=== PATIENT | female | born 1985 | race Caucasian/White ===

== ENCOUNTER 2022-07-22 01:22 | Inpatient (IN) | payer OTHER, SELFPAY ==
--- NOTE | 2022-07-22 03:05 | PC.ADMIT ---
PT is a 36 year old female who was transferred to [facility] from [facility] where she was seen for increased anxiety depression and SI without a plan . She arrived at 1:40am on 07/22/22 She is pleasant denies active SI thoughts at time of admission . She has been noncompliant with her medications due to running out of them a few weeks ago and dose not have a provider to write prescriptions. Has a history of alcohol use but did not meet ciwa score she is not showing s/s of withdrawal.
[2022-07-22 08:04] VITALS: BP 94/51; PULSE 59; RESP 16; TEMP 36.6; O2SAT 94
[2022-07-22 09:20] VITALS: BP 101/60; PULSE 60; RESP 18; O2SAT 97
[2022-07-22] MEDS: cloNIDine HCL 0.1 MG TABLET PO ×2 (09:24→20:54)
--- NOTE | 2022-07-22 11:39 | P.CONHOSP_ITS ---
History of Present Illness Data of Consult Service Date: 07/22/22 Requesting physician: Lele Hart Primary Care Provider: Unknown Physician HPI Reason for consult: medical H&P 36 year old female with history opiate dependence now on suboxone, depression, anxiety, alcohol abuse, 1/2 ppd cigarette smoker, and ADHD admitted to psychiatry from [facility] for increased depression, anxiety, si without a plan with consult placed for medical H&P. She reports some constipation. Denies any hx IVDU, states was started on suboxone while in the ED and denies any withdrawal or cravings however has not gotten her dose today and is requesting this. Reports binge drinking for days at a time consuming 10+ alcoholic beverages in a day. No etoh use in several weeks. Has experienced withdrawal but no hx withdrawal seizure. No other medical complaints. Review of Systems Review of Systems: General: No fevers, malaise, unintentional weight loss HEENT: no blurred vision, diplopia Cardiovascular: No chest pain, palpitations, or leg edema Respiratory: No shortness of breath, wheezing, cough GI: +constipation. No abdominal pain, nausea, vomiting, diarrhea, melena, hematochezia Gu: No dysuria, hematuria, increased frequency MSK: No pain Neuro: No headaches, weakness, paresthesias Psych: +depression, +SI Skin: No rashes or lesions PMFSH Medical History ADHD Depression Opiate dependence Family History Mother No significant family history Father No significant family history Social History Household Members: None Housing: Homeless Do you presently have visiting nurse or other home services: No Patient Tobacco Use Status: Current everyday Tobacco user Tobacco use type: Cigarette Cigarette Packs Per Day: 0.5 Cigarettes Per Day: 10.0 Smoked in Last 30 Days: Yes e-Cigarette/Vaping Use: Never Used Patient Interested in Nicotine Replacement: Yes Patient Given Instructions on How to Stop Smoking: Yes Date Education Initiated: 07/22/22 Second Hand Smoke Exposure: Yes Use of substances other than those prescribed or required for medical reasons: No Currently Displaying Signs/Symptoms of Drug Intoxication Withdrawal: No Spiritual Healthcare Practices: none Adventist Healthcare Practices: none Cultural Healthcare Practices: none Advance Directives: No Do you have thoughts of harming others: None Do you have a plan to hurt others: No Plan Recently lost weight without trying: No Nutrition Risks: No Nutritional Risk Patient : No : No Poor oral hygiene: No Meds Allergies Allergy/AdvReac Type Severity Reaction Status Date / Time haldol AdvReac Intermediate dystonia Uncoded 07/22/22 01:40 Active Medications: Current Medications Acetaminophen (Acetaminophen 325 Mg Tablet) 650 mg PO Q6H PRN PRN Reason: Headache/Pain Mild Scale (1-3) Al Hydroxide/Mg Hydroxide (Magnesium Hydrox/Alum Hydrox 30 Ml Oral.Susp) 30 ml PO Q6H PRN PRN Reason: Heartburn/Nausea Aripiprazole (Aripiprazole 5 Mg Tablet) 5 mg PO BEDTIME [facility] Clonidine HCl (Clonidine Hcl 0.1 Mg Tablet) 0.1 mg PO BID [facility]; Protocol Last Admin: 07/22/22 09:24 Dose: 0.1 mg Fluoxetine HCl (Fluoxetine Hcl Oral Solution 20 Mg/5 Ml Solution) 40 mg PO DAILY [facility] Last Admin: 07/22/22 08:24 Dose: Not Given Hydroxyzine HCl (Hydroxyzine Hcl 25 Mg Tablet) 25 mg PO Q6H PRN PRN Reason: Anxiety Magnesium Hydroxide (Milk Of Magnesia 30 Ml Oral.Susp) 30 ml PO DAILY PRN PRN Reason: Constipation Trazodone HCl (Trazodone Hcl 50 Mg Tablet) 50 mg PO BEDTIME PRN PRN Reason: Insomnia Vitamin D (Cholecalciferol (Vitamin D3) 25 Mcg Tablet) 25 mcg PO DAILY [facility] Last Admin: 07/22/22 08:23 Dose: Not Given Physical Exam Vital Signs and Narrative: Vital Signs: Last Vital Signs Temp 97.9 F 07/22/22 08:04 Pulse 60 07/22/22 09:20 Resp 18 07/22/22 09:20 BP 101/60 07/22/22 09:20 Pulse Ox 97 07/22/22 09:20 O2 Del Method 07/22/22 09:20 Constitutional - Awake and Alert, No apparent distress Eyes - PERRLA, EOMI Cardiovascular - S1S2, RRR, No edema Respiratory - Normal lung expansion, Normal respiratory effort, No respiratory distress, CTA bilaterally Gastrointestinal - NT / ND; +BS; No rebound or guarding Extremities - no calf tenderness bilaterally, no swelling Musculoskeletal - Normal inspection, normal ROM Skin - Warm/Dry Neurological - Alert & oriented x3, CN II-XII in tact, 5/5 strength BUE and BLE Psychological - Appropriate affect Assessment and Plan (1) Depression: Status: Acute (2) Suicidal ideation: Status: Acute (3) Opiate dependence: Status: Acute Plan 36 year old female with history opiate dependence now on suboxone, depression, anxiety, alcohol abuse, 1/2 ppd cigarette smoker, and ADHD admitted to psychiatry from [facility] for increased depression, anxiety, si without a plan with consult placed for medical H&P. #depression with SI -Plan per psychiatry #ADHD -plan per psychiatry #Opiate dependence -hx inh, po opiates. Denies IVDA -Suboxone initiated in ED. Recommend continuing to prevent w/d and further use #Constipation likely secondary to opiate use -docusate prn. milk of mag if needed prn Thank you for allowing me to participate in this consult. Signing off at this time. Please do not hesitate to call for further questions.
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
[2022-07-22] MEDS: FLUoxetine HCl 20 MG CAPSULE 40 MG PO (12:35)
[2022-07-22] MEDS: Buprenorphine/Naloxone 4/1 mg FILM 1 FILM SUBLINGUAL (12:35)
[2022-07-22] MEDS: Buprenorphine/Naloxone 8/2 mg FILM 1 FILM SUBLINGUAL (15:54)
[2022-07-22 19:30] VITALS: BP 100/65; PULSE 78
[2022-07-22] MEDS: Nicotine Polacrilex 2 MG GUM 4 MG BUCCAL ×2 (19:45→20:54)
[2022-07-22 20:52] VITALS: BP 102/55; PULSE 57
[2022-07-22] MEDS: traZODone HCL 50 MG TABLET PO (20:54)
[2022-07-23 08:04] VITALS: BP 111/60; PULSE 61; RESP 16; TEMP 36.8; O2SAT 95
[2022-07-23] MEDS: Buprenorphine/Naloxone 8/2 mg FILM 1 FILM SUBLINGUAL ×2 (09:19→15:54)
[2022-07-23] MEDS: Dextroamphetamine/Amphetamine XR 10 MG CAP.ER.24H 20 MG PO (09:19)
[2022-07-23] MEDS: FLUoxetine HCl 20 MG CAPSULE 40 MG PO (09:20)
[2022-07-23 09:26] LABS: Estimated Average Glucose 91 mg/dL; Hemoglobin A1c % 4.8 %
[2022-07-23 09:48] LABS: Alanine Aminotransferase 14 U/L (0-31); Albumin Level 3.5 g/dL (3.5-5.0); Alkaline Phosphatase 54 U/L (39-117); Anion Gap 13 (12-20); Aspartate Amino Transferase 17 U/L (5-31); Bilirubin Total 0.2 mg/dL (0.0-1.0); Blood Urea Nitrogen 12 mg/dL (9-16); Calcium 8.8 mg/dL (8.4-10.2); Carbon Dioxide 27 mmol/L (22-29); Chloride 105 mmol/L (96-108); Cholesterol 143 mg/dL; Estimated Glomerular Filt Rate > 60; Glucose Fasting 84 mg/dL (60-99); HDL Cholesterol 35 mg/dL; LDL Cholesterol Calculated 89 mg/dl; Potassium 4.5 mmol/L (3.3-5.1); Sodium 140 mmol/L (135-145); Total Protein 5.8 g/dL (6.5-8.0); Triglycerides 98 mg/dL
[2022-07-23 10:01] LABS: Thyroid Stimulating Hormone 2.15 uIU/mL (0.32-4.0)
[2022-07-23 10:41] LABS: Folate 12.5 ng/mL (> or = 4.0); Vitamin B12 561 pg/mL (200-900)
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
[2022-07-23] MEDS: Nicotine Polacrilex 2 MG GUM 4 MG BUCCAL (17:06)
[2022-07-23 17:26] VITALS: BP 118/82; PULSE 81; RESP 16; TEMP 36.6; O2SAT 96
[2022-07-23] MEDS: cloNIDine HCL 0.1 MG TABLET PO (17:53)
[2022-07-23] MEDS: traZODone HCL 50 MG TABLET PO (19:40)
[2022-07-23] MEDS: hydrOXYzine HCL 50 MG TABLET PO (19:40)
[2022-07-23] MEDS: Acetaminophen 325 MG TABLET 650 MG PO (19:40)
[2022-07-24 06:00] VITALS: BP 102/58; PULSE 87; TEMP 37; O2SAT 100
[2022-07-24] MEDS: Cholecalciferol (Vitamin D3) 25 MCG TABLET PO (09:08)
[2022-07-24] MEDS: FLUoxetine HCl 20 MG CAPSULE 40 MG PO (09:08)
[2022-07-24] MEDS: Buprenorphine/Naloxone 8/2 mg FILM 1 FILM SUBLINGUAL ×2 (09:08→14:50)
[2022-07-24] MEDS: Dextroamphetamine/Amphetamine XR 10 MG CAP.ER.24H 20 MG PO (09:08)
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
[2022-07-24] MEDS: Nicotine Polacrilex 2 MG GUM 4 MG BUCCAL ×2 (12:01→20:56)
[2022-07-24] MEDS: Acetaminophen 325 MG TABLET 650 MG PO ×2 (12:40→18:51)
[2022-07-24] MEDS: cloNIDine HCL 0.1 MG TABLET PO (14:50)
[2022-07-24 17:20] VITALS: BP 118/65; PULSE 85; TEMP 36.4; O2SAT 95
[2022-07-24] MEDS: traZODone HCL 50 MG TABLET PO (20:55)
[2022-07-24] MEDS: hydrOXYzine HCL 50 MG TABLET PO (20:56)
[2022-07-24] MEDS: Hydrocortisone 1 % Cream 28.35 GM TUBE 1 APPL TOPICAL (20:56)
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
[2022-07-25] MEDS: Dextroamphetamine/Amphetamine XR 10 MG CAP.ER.24H 20 MG PO (09:38)
[2022-07-25] MEDS: Buprenorphine/Naloxone 8/2 mg FILM 1 FILM SUBLINGUAL ×2 (09:38→15:19)
[2022-07-25] MEDS: FLUoxetine HCl 20 MG CAPSULE 40 MG PO (09:38)
[2022-07-25] MEDS: Cholecalciferol (Vitamin D3) 25 MCG TABLET PO (09:38)
[2022-07-25] MEDS: Nicotine Polacrilex 2 MG GUM 4 MG BUCCAL ×4 (12:27→21:32)
[2022-07-25] MEDS: Acetaminophen 325 MG TABLET 650 MG PO (12:27)
[2022-07-25 14:00] VITALS: BP 123/75; PULSE 102
[2022-07-25] MEDS: Hydrocortisone 1 % Cream 28.35 GM TUBE 1 APPL TOPICAL (14:37)
[2022-07-25] MEDS: Ibuprofen 600 MG TABLET PO (17:50)
[2022-07-25 18:38] VITALS: BP 137/85; PULSE 106
[2022-07-25] MEDS: cloNIDine HCL 0.1 MG TABLET PO (18:39)
[2022-07-25] MEDS: traZODone HCL 50 MG TABLET PO (21:32)
[2022-07-25] MEDS: hydrOXYzine HCL 50 MG TABLET PO (21:32)
[2022-07-26 06:00] VITALS: BP 95/58; PULSE 74; RESP 14; TEMP 36.6; O2SAT 97
[2022-07-26] MEDS: Buprenorphine/Naloxone 8/2 mg FILM 1 FILM SUBLINGUAL ×2 (08:52→16:05)
[2022-07-26] MEDS: buPROPion HCl XL 150 MG TAB.ER.24H PO (08:52)
[2022-07-26] MEDS: FLUoxetine HCl 20 MG CAPSULE 40 MG PO (08:52)
[2022-07-26] MEDS: Cholecalciferol (Vitamin D3) 25 MCG TABLET PO (08:53)
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
[2022-07-26 19:55] VITALS: BP 98/66; PULSE 79; RESP 16; TEMP 36.5
[2022-07-26] MEDS: Docusate Sodium 100 MG CAPSULE PO (20:00)
[2022-07-26] MEDS: cloNIDine HCL 0.1 MG TABLET PO (20:00)
[2022-07-26] MEDS: traZODone HCL 50 MG TABLET PO (20:01)
[2022-07-26] MEDS: Nicotine Polacrilex 2 MG GUM 4 MG BUCCAL (20:01)
[2022-07-27] MEDS: Buprenorphine/Naloxone 8/2 mg FILM 1 FILM SUBLINGUAL ×2 (08:53→16:50)
[2022-07-27] MEDS: Dextroamphetamine/Amphetamine XR 10 MG CAP.ER.24H 20 MG PO (08:53)
[2022-07-27] MEDS: FLUoxetine HCl 20 MG CAPSULE 40 MG PO (08:53)
[2022-07-27] MEDS: buPROPion HCl XL 150 MG TAB.ER.24H PO (08:53)
[2022-07-27] MEDS: Cholecalciferol (Vitamin D3) 25 MCG TABLET PO (08:53)
[2022-07-27] MEDS: Nicotine Polacrilex 2 MG GUM 4 MG BUCCAL ×2 (12:58→18:43)
[2022-07-27] MEDS: cloNIDine HCL 0.1 MG TABLET PO (12:58)
[2022-07-27] MEDS: Ibuprofen 600 MG TABLET PO (12:58)
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
[2022-07-27 18:00] VITALS: BP 122/74; PULSE 108; TEMP 36.3; O2SAT 95
[2022-07-27] MEDS: Docusate Sodium 100 MG CAPSULE PO (18:43)
[2022-07-27] MEDS: hydrOXYzine HCL 50 MG TABLET PO (18:43)
[2022-07-27] MEDS: traZODone HCL 50 MG TABLET PO (20:39)
[2022-07-28 06:00] VITALS: BP 101/50; PULSE 73; RESP 24; TEMP 36.6; O2SAT 98
[2022-07-28] MEDS: Dextroamphetamine/Amphetamine XR 10 MG CAP.ER.24H 20 MG PO (08:12)
[2022-07-28] MEDS: FLUoxetine HCl 20 MG CAPSULE 40 MG PO (08:12)
[2022-07-28] MEDS: Cholecalciferol (Vitamin D3) 25 MCG TABLET PO (08:12)
[2022-07-28] MEDS: buPROPion HCl XL 150 MG TAB.ER.24H PO (08:12)
[2022-07-28] MEDS: Buprenorphine/Naloxone 8/2 mg FILM 1 FILM SUBLINGUAL ×2 (08:42→16:34)
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
[2022-07-28] MEDS: Nicotine Polacrilex 2 MG GUM 4 MG BUCCAL (12:21)
[2022-07-28] MEDS: Ibuprofen 600 MG TABLET PO (14:56)
[2022-07-29] MEDS: FLUoxetine HCl 20 MG CAPSULE 40 MG PO (09:33)
[2022-07-29] MEDS: Buprenorphine/Naloxone 8/2 mg FILM 1 FILM SUBLINGUAL ×2 (09:33→15:54)
[2022-07-29] MEDS: Cholecalciferol (Vitamin D3) 25 MCG TABLET PO (09:34)
[2022-07-29] MEDS: buPROPion HCl XL 150 MG TAB.ER.24H PO (09:34)
[2022-07-29] MEDS: Dextroamphetamine/Amphetamine XR 10 MG CAP.ER.24H 20 MG PO (09:34)
[2022-07-29 09:36] VITALS: BP 110/68; PULSE 83; RESP 18; TEMP 36.3; O2SAT 96
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
[2022-07-29 12:17] LABS: Appearance Urine Cloudy; Color Urine Yellow; Glucose Urine UA Negative (Negative); Leukocyte Esterase Urine Negative (Negative); Nitrite Urine Negative (Negative); Specific Gravity - Urine 1.015 (1.005-1.025); Urine Blood Negative (Negative); Urine Ketones Negative (Negative); Urine Protein Negative (Neg-Trace)
[2022-07-29 12:20] LABS: Bacteria Urine 1+ (None Seen); Hyaline Casts Urine 0-2 /LPF (0-2); RBC Urine 0-2 /HPF (0-2); WBC Urine 0-5 /HPF (0-5)
[2022-07-29] MEDS: cloNIDine HCL 0.1 MG TABLET PO ×2 (13:08→20:43)
[2022-07-29] MEDS: Ibuprofen 600 MG TABLET PO ×2 (13:08→19:34)
[2022-07-29] MEDS: Nicotine Polacrilex 2 MG GUM 4 MG BUCCAL ×3 (13:09→20:36)
[2022-07-29] MEDS: Acetaminophen 325 MG TABLET 650 MG PO (15:53)
[2022-07-29] MEDS: Docusate Sodium 100 MG CAPSULE PO (15:54)
[2022-07-29] MEDS: hydrOXYzine HCL 50 MG TABLET PO (19:35)
[2022-07-29 19:39] VITALS: BP 126/77; PULSE 105; RESP 16; TEMP 36.2; O2SAT 97
[2022-07-29] MEDS: traZODone HCL 50 MG TABLET PO (20:37)
[2022-07-30 08:30] VITALS: BP 109/67; PULSE 89; TEMP 36.3; O2SAT 97
[2022-07-30] MEDS: FLUoxetine HCl 20 MG CAPSULE 40 MG PO (08:49)
[2022-07-30] MEDS: Dextroamphetamine/Amphetamine XR 10 MG CAP.ER.24H 20 MG PO (08:49)
[2022-07-30] MEDS: Cholecalciferol (Vitamin D3) 25 MCG TABLET PO (08:49)
[2022-07-30] MEDS: buPROPion HCl XL 150 MG TAB.ER.24H PO (08:49)
[2022-07-30] MEDS: Buprenorphine/Naloxone 8/2 mg FILM 1 FILM SUBLINGUAL (08:49)
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
== END 2022-07-30 10:00 | disposition other institution (70) | DRG 751 ==
PROVIDERS: Social Worker; Admitting Provider Psychiatry & Neurology Psychiatry; Visit Provider Psychiatry & Neurology Psychiatry
DX: F33.2 Major depressive disorder, recurrent severe without psychotic features (principal); R45.851 Suicidal ideations; F11.20 Opioid dependence, uncomplicated; K59.03 Drug induced constipation; T40.605A Adverse effect of unspecified narcotics, initial encounter; F90.9 Attention-deficit hyperactivity disorder, unspecified type; F43.10 Post-traumatic stress disorder, unspecified; F17.210 Nicotine dependence, cigarettes, uncomplicated; Z71.6 Tobacco abuse counseling; Z79.899 Other long term (current) drug therapy
CPT/HCPCS: 36415; 80053; 80061; 81001; 82607; 82746; 83036; 84443

== ENCOUNTER 2023-01-14 12:15 | Outpatient (RCR) | payer OTHER, SELFPAY ==
--- NOTE | 2023-01-15 09:34 | PC.NURSE ---
Lori did not show up to the program this morning. I called and left a message for her to call me back.
--- NOTE | 2023-01-15 09:47 | PC.NURSE ---
I called Lori again and was not able to reach her. I reached out to her emergency contact center specialist Brittanie Killian her partner and left her a message to call me back.
--- NOTE | 2023-01-15 10:45 | PC.NURSE ---
I called and left a message again with Lori and I also called her emergency contact. I have not heard back from either person. Per [facility] protocol I called the [place] [employer] and spoke with Emily and requested a Wellness Check. Emily stated she would call me back with an update. [facility] staff is aware.
--- NOTE | 2023-01-15 11:31 | PC.NURSE ---
Emily from the [place] [employer] called me back and stated Lori does not live at the address she listed and the person at the address stated she no longer lives at that address and she lives in [place]. I spoke to [facility] staff Galilea Rendon who stated Lori is living at the [facility] in [place]. I called the [facility] and was able to get a hold of Lori who stated she overslept as her alarm did not go off this morning. She stated she would not be able to attend on Thursday as she has court and will not be able to attend on Thursday as she has a medication evaluation appointment. Patient will not be able to start the program at this time as she is not available. I told Lori to call aTmar the program placement secretary to rescheduled another intake appointment if needed. Lori agreed. I asked if she was safe and she stated she was safe, no SI. PHP team is aware.
== END 2023-01-14 23:59 | disposition home or self-care (01) ==
LOC: HO.PHPA 12:15
PROVIDERS: Visit Provider Psychiatry & Neurology Psychiatry
DX: F31.32 Bipolar disorder, current episode depressed, moderate (principal); F15.10 Other stimulant abuse, uncomplicated; Z72.89 Other problems related to lifestyle
CPT/HCPCS: 90791

== ENCOUNTER 2024-11-07 10:41 | Emergency (ER) | payer MEDICAID, SELFPAY ==
--- NOTE | ~2024-11-07 | XR_ITS ---
EXAMINATION: XR FOOT, RIGHT CLINICAL INFORMATION: pain, fall COMPARISON: None available. TECHNIQUE: AP, lateral, and oblique views of the right foot. FINDINGS: The bones and soft tissues are normal. No fracture. Alignment is anatomic. Joint spaces are maintained. XR/XR foot RT min 3V IMPRESSION: Unremarkable right foot exam Electronically signed by: Mike Cheek MD 11/07/2024 01:24 PM EST
--- NOTE | ~2024-11-07 | XR_ITS ---
EXAMINATION: XR ANKLE, RIGHT CLINICAL INFORMATION: injury COMPARISON: None available. TECHNIQUE: AP, lateral, and mortise views of the right ankle. FINDINGS: No acute cortical disruption or malalignment. No lytic or blastic lesions. No subcutaneous emphysema. Edema pattern versus soft tissue contusion and lateral malleolus, mild. XR/XR ankle RT min 3V IMPRESSION: No acute fracture or dislocation. Electronically signed by: Cem Schuler MD 11/07/2024 12:31 PM ANTIONE
[2024-11-07 11:53] VITALS: BP 135/82; PULSE 109; RESP 20; TEMP 36.8; O2SAT 99; BMI 33.3
--- NOTE | 2024-11-07 11:54 | ED.GENADULT ---
HPI - General Adult General Chief complaint: Fall Stated complaint: r ankle inj at home Time Seen by Provider: 11/07/24 12:55 Source: patient Mode of arrival: ambulatory Limitations: no limitations History of Present Illness ED Provider: HANY RASCON narrative: 39 yo female with PMH of PTSD, MDD, ADHD here with c/o inverting R ankle and rolling it with some dorsal foot pain after trip and fall down 4 stairs. Landed awkwardly on the R foot/ankle. No head or neck strike. She has no other injuries not on thinners. MD complaint: R foot / ankle pain Onset (ago): day(s) (1) Location: right and lower extremity Radiation: non-radiation Severity: mild Quality: aching Pain Consistency: intermittent Relieving factors: immobilization Exacerbating factors: movement Associated symptoms: denies other symptoms Treatments prior to arrival: none Related Data Previous Rx's ?Medication ?Instructions ?Recorded acetaminophen 325 mg tablet 650 mg (2 x 325 mg) PO Q6H PRN 07/29/22 Headache/Pain Mild Scale (1-3) #0 tabs aluminum-magnesium hydroxide 200 30 ml PO Q6H PRN Heartburn/Nausea 07/29/22 mg-200 mg/5 mL oral suspension #0 mL (MAG-AL) buprenorphine 8 mg-naloxone 2 mg 1 film buccal BID@0900,1600 30 07/29/22 sublingual film (Suboxone) days #60 ea bupropion HCl 150 mg 24 hr tablet, 150 mg PO DAILY 30 days #30 tabs 07/29/22 extended release cholecalciferol (vitamin D3) 25 25 mcg PO DAILY 30 days #30 tabs 07/29/22 mcg (1,000 unit) tablet clonidine HCl 0.1 mg tablet 0.1 mg PO BID PRN anxiety/insomnia 07/29/22 30 days #60 tabs dextroamphetamine-amphetamine ER 20 mg PO DAILY 30 days #30 caps 07/29/22 20 mg 24hr capsule,extend release docusate sodium 100 mg capsule 100 mg PO BID PRN Constipation #0 07/29/22 caps fluoxetine 20 mg capsule 40 mg (2 x 20 mg) PO DAILY 30 days 07/29/22 #60 caps hydrocortisone 1 % topical cream 1 appl topical BID PRN eczema 30 07/29/22 days #28.35 grams hydroxyzine HCl 50 mg tablet 50 mg PO Q6H PRN Anxiety 30 days 07/29/22 #90 tabs ibuprofen 600 mg tablet 600 mg PO Q6H PRN mild pain #0 tabs 07/29/22 magnesium hydroxide 400 mg/5 mL 30 ml PO DAILY PRN Constipation #0 07/29/22 oral suspension (Milk of Magnesia) mL nicotine (polacrilex) 2 mg gum 4 mg buccal Q2H PRN nicotine 07/29/22 cravings 30 days #100 ea trazodone 50 mg tablet 50 mg PO BEDTIME PRN Insomnia 30 07/29/22 days #30 tabs Allergies Allergy/AdvReac Type Severity Reaction Status Date / Time haldol AdvReac Intermediate dystonia Uncoded 11/07/24 11:56 Review of Systems Review of Systems: Constitutional : No Fever, No Chills ENT/Mouth : No Ear Pain, No Hoarseness, No sore throat Eyes: No Eye Pain, No Swelling, No Redness, No Foreign Body Cardiovascular : No Chest Pain, No SOB Respiratory : No Cough, No Dyspnea Gastrointestinal : No Nausea, No Vomiting, No Diarrhea, No abdominal Pain Genitourinary : No Dysuria, No Hematuria Musculoskeletal : positive joint pain, No Myalgias, pos Joint Swelling Skin : No Skin lacerations, No rash Neuro : No Weakness, No Numbness, No Loss of Consciousness, No Dizziness, No Headache All other systems reviewed and are negative [facility] Past Medical History Attestation statement: The following information was validated with the patient. Source: old records reviewed Medical History PTSD (post-traumatic stress disorder) MDD (major depressive disorder), recurrent severe, without psychosis Opiate dependence ADHD Family History Family History Mother No significant family history Father No significant family history Social History Social History Household Members: Significant Other Housing: Homeless Do you presently have visiting nurse or other home services: No Patient Tobacco Use Status: Current everyday Tobacco user Tobacco use type: Cigarette Cigarette Packs Per Day: 0.5 Cigarettes Per Day: 10.0 e-Cigarette/Vaping Use: Never Used Second Hand Smoke Exposure: Yes Advance Directives: No Advance Directives Information Provided: No Do you have a plan to hurt others: No Plan service: No Sexual orientation: Lesbian/Alejandro/Homosexual Physical Exam ED Vital Signs: Vital Signs - 24 hr 11/07/24 11:53 Temperature 98.2 F Pulse Rate 109 H Respiratory Rate 20 Blood Pressure 135/82 Pulse Oximetry 99 Oxygen Delivery Method Room Air BMI result Body Mass Index 33.3 Appearance: Alert. Oriented X3. No acute distress. Eyes: Pupils equal, round and reactive to light. ENT: Pharynx normal. Neck: Normal inspection. Neck supple. CVS: Normal heart rate and rhythm. Pulses normal. Respiratory: No respiratory distress. Breath sounds normal. Abdomen: Soft and nontender. Skin: Skin warm and dry. Normal skin color. Normal skin turgor. Extremities: No lower extremity edema. R ankle lateral malleolus ttp and moderate swelling, dorsum of R foot - 4th metatarsal TTP she is NV intact, no other pain or injury Neuro: Oriented X 3. No motor deficit. No sensory deficit. CN2-12 intact Course Course Course Narrative: RME, this is a rapid medical exam performed by Jasson Nassar please refer to primary provider for complete H&P- 39-year-old female presents for evaluation of right ankle injury. She reports falling down several stairs yesterday. Denies head strike. Plan for x-rays of the right ankle Procedures Orthopedic Splinting/Casting Injury #1: Side: right Lower Extremity Injury Location: ankle Lower Extremity Immobilizer: [employer] Medical Decision Making Medical Decision Making [facility] Narrative: 39 yo female with PMH of PTSD, MDD, ADHD here with c/o R foot and ankle pain s/p fall with inversion injury she will need xrays of R ankle and R foot she is nv intact, denies other injuries. At this time will anticipate placing in aircast and [place] home Differential Diagnosis Differential Diagnoses: The differential diagnosis associated with the presentation includes strain, sprain, fracture Independent Interpretation I performed an independent interpretation of an: Plain X-Ray (no fx) Radiology Impression Discussion of test interpretation with radiology: I have reviewed the radiologist's reading. External Record Review External record reviewed: Outpatient record Prescription Management I considered prescription management with: Pain Medication Discharge Plan Discharge Clinical Impression: Ankle sprain Qualifiers: Encounter type: initial encounter Involved ligament of ankle: anterior talofibular ligament Laterality: right Qualified Code(s): S93.491A - Sprain of other ligament of right ankle, initial encounter Patient Disposition: Home, Self-Care Instructions: Ankle Sprain (ED), Ankle Stirrup Splint (ED) Additional Instructions: xrays negative for fracture wear splint for 5 days no exercise or strenuous activity for 14 days return for any worsening symptoms, pain, swelling or any other concerns ARRIVED IN ED 1041am DISCHARTED at 125pm Prescriptions: No Action nicotine (polacrilex) 2 mg Gum 4 mg buccal Q2H PRN (Reason: nicotine cravings) 30 Days Qty: 100 1RF clonidine HCl 0.1 mg Tablet 0.1 mg PO BID PRN (Reason: anxiety/insomnia) 30 Days Qty: 60 1RF Protocol: Hold for SBP< HOLD for SBP < : 90 acetaminophen 325 mg Tablet 650 mg PO Q6H PRN (Reason: Headache/Pain Mild Scale (1-3)) Qty: 0 0RF bupropion HCl 150 mg Tablet Extended Release 24 Hr 150 mg PO DAILY 30 Days Qty: 30 1RF dextroamphetamine-amphetamine 20 mg capsule,extended release 24hr 20 mg PO DAILY 30 Days Qty: 30 0RF Rx Instructions: Partial Fill upon patient request. fluoxetine 20 mg Capsule 40 mg PO DAILY 30 Days Qty: 60 1RF hydroxyzine HCl 50 mg Tablet 50 mg PO Q6H PRN (Reason: Anxiety) 30 Days Qty: 90 1RF trazodone 50 mg Tablet 50 mg PO BEDTIME PRN (Reason: Insomnia) 30 Days Qty: 30 1RF ibuprofen 600 mg Tablet 600 mg PO Q6H PRN (Reason: mild pain) Qty: 0 0RF magnesium hydroxide [Milk of Magnesia] 400 mg/5 mL Suspension 30 ml PO DAILY PRN (Reason: Constipation) Qty: 0 0RF hydrocortisone 1 % Cream 1 appl topical BID PRN (Reason: eczema) 30 Days Qty: 28.35 0RF docusate sodium 100 mg Capsule 100 mg PO BID PRN (Reason: Constipation) Qty: 0 0RF MAG-AL 200-200 mg/5 mL Suspension 30 ml PO Q6H PRN (Reason: Heartburn/Nausea) Qty: 0 0RF cholecalciferol (vitamin D3) 25 mcg (1,000 unit) Tablet 25 mcg PO DAILY 30 Days Qty: 30 1RF buprenorphine-naloxone [Suboxone] 8-2 mg film 1 film buccal BID@0900,1600 30 Days Qty: 60 0RF Stand Alone Forms: Work/School Release Print Language: Kazakh
[2024-11-07 15:42] VITALS: BP 135/82; PULSE 109; RESP 20; TEMP 36.8; O2SAT 99
== END 2024-11-07 13:23 | disposition home or self-care (01) ==
PROVIDERS: Emergency Provider Emergency Medicine
DX: S93.491A Sprain of other ligament of right ankle, initial encounter (principal); W10.9XXA Fall (on) (from) unspecified stairs and steps, initial encounter; Y93.9 Activity, unspecified; Y92.9 Unspecified place or not applicable; Y99.9 Unspecified external cause status
CPT/HCPCS: 73610; 73630; 99282; 99283

== ENCOUNTER → 2024-11-07 11:54 | Outpatient (BNV) | payer MEDICAID, SELFPAY | PROVIDERS: Visit Provider Radiology Diagnostic Radiology | DX: S93.491A Sprain of other ligament of right ankle, initial encounter (principal); M25.571 Pain in right ankle and joints of right foot | CPT/HCPCS: 73610; 73630 ==